=== PATIENT | male | born 1980 | race Caucasian/White ===

== ENCOUNTER 2016-08-16 10:25 | Emergency (ER) | payer OTHER ==
[~2016-08-16] VITALS: Ht 190.5 cm; Wt 89.2 kg
[2016-08-16 12:01] LABS: EOSINOPHIL (%) 1.3 % (0-5); EOSINOPHIL COUNT 0.1 K/uL (0-0.3); IMMATURE GRANULOCYTE (%) 0.2 % (0.0-0.7); INSTRUMENT ABS NEUTROPHIL CT 4.3 K/uL; LYMPHOCYTE COUNT 1.3 K/uL (1.0-2.8); MCH 29.4 PG (29.0-34.0); MCHC 32.9 G/DL (30.0-36.0); MCV 89.4 FL (86-99); MEAN PLAT.VOLUME 9.9 uM^3 (9.0-12.4); MONOCYTE (%) 5.7 % (3-12); MONOCYTE COUNT 0.4 K/uL (0-0.8); NEUTROPHIL (%) 70.7 % (45-76); NEUTROPHIL COUNT 4.3 K/uL (1.8-6.4); PLATELET COUNT 237 K/uL (156-360); RBC DIS.WIDTH-CV 12.4 % (11.8-14.6); RBC DIS.WIDTH-SD 41.1 % (39-53); WHITE BLOOD COUNT 6.1 K/uL (4.1-10.2)
[2016-08-16 12:13] LABS: CHLORIDE 108 mEq/L (99-109); POTASSIUM 4.4 mEq/L (3.7-5.4); SODIUM 141 mEq/L (136-147)
[2016-08-16 12:15] LABS: GLUCOSE 106 mg/dL (70-99)
[2016-08-16 12:16] LABS: ANION GAP 7 MEQ/L (2-14)
[2016-08-16 12:18] LABS: TROP-I INTERPRETATION NEGATIVE; TROPONIN-I 0.01 ng/mL (0.0-0.30)
[2016-08-16 12:19] LABS: GFR ESTIMATE (CALCULATED) > 59 mL/min/
[2016-08-16 12:20] LABS: UREA NITROGEN (BUN) 15 mg/dL (9-23)
[2016-08-16] MEDS ORDERED: INDOCIN50 MG PO (13:01)
[2016-08-16] MEDS ORDERED: PREDNISONE50 MG PO (13:01)
[2016-08-16 13:36] VITALS: BP 120/83
== END 2016-08-16 13:48 | disposition home or self-care (01) ==
LOC: EME 10:25
PROVIDERS: Emergency Medicine
DX: R07.9 Chest pain, unspecified (principal); Z82.49 Family history of ischemic heart disease and other diseases of the circulatory system; Z72.0 Tobacco use
CPT/HCPCS: 71010; 80048; 84484; 85025; 85379; 93005; 99281; 99285; J1885; J2930; J7040

== ENCOUNTER 2016-10-02 12:42 | Emergency (ER) | payer OTHER ==
[~2016-10-02] VITALS: Ht 190.5 cm; Wt 92.8 kg
[~2016-10-02 12:42] MED LIST: INDOCIN50 MG PO; PREDNISONE50 MG PO
[2016-10-02] MEDS ORDERED: SEROQUEL300 MG PO (14:00)
[2016-10-02] MEDS ORDERED: FOCALIN XR30 MG PO (14:00)
[2016-10-02] MEDS ORDERED: NEURONTIN800 MG PO (14:00)
[2016-10-02 14:47] VITALS: BP 123/98
== END 2016-10-02 14:48 | disposition home or self-care (01) ==
LOC: EME 12:42
DX: Z76.0 Encounter for issue of repeat prescription (principal); F41.9 Anxiety disorder, unspecified; F90.9 Attention-deficit hyperactivity disorder, unspecified type; F31.9 Bipolar disorder, unspecified; F17.200 Nicotine dependence, unspecified, uncomplicated; Z88.8 Allergy status to other drugs, medicaments and biological substances; F32.9 Major depressive disorder, single episode, unspecified
CPT/HCPCS: 99281; 99283

== ENCOUNTER 2017-02-13 08:24 | Emergency (ER) | payer OTHER ==
[~2017-02-13] VITALS: Ht 190.5 cm; Wt 86.6 kg
[~2017-02-13 08:24] MED LIST changes: +FOCALIN XR30 MG PO; +NEURONTIN800 MG PO; +SEROQUEL300 MG PO
[2017-02-13] MEDS ORDERED: MOTRIN600 MG PO (10:11)
[2017-02-13 10:39] VITALS: BP 130/90
== END 2017-02-13 10:40 | disposition home or self-care (01) ==
LOC: EME 08:24
DX: S93.401A Sprain of unspecified ligament of right ankle, initial encounter (principal); X58.XXXA Exposure to other specified factors, initial encounter; F17.200 Nicotine dependence, unspecified, uncomplicated
CPT/HCPCS: 73610; 99281; 99284

== ENCOUNTER 2017-04-14 09:20 | Emergency (ER) | payer OTHER ==
[~2017-04-14] VITALS: Ht 188 cm; Wt 90.8 kg
[~2017-04-14 09:20] MED LIST changes: +MOTRIN600 MG PO
[2017-04-14 09:40] VITALS: BP 115/72
[2017-04-14 10:34] LABS: HEMATOCRIT 37.6 % (38.0-50.0); HEMOGLOBIN 12.6 G/DL (12.5-16.6); MCH 30.1 PG (29.0-34.0); MCHC 33.5 G/DL (30.0-36.0); MCV 89.7 FL (86-99); PLATELET COUNT 210 K/uL (156-360); RBC DIS.WIDTH-CV 12.5 % (11.8-14.6); RBC DIS.WIDTH-SD 40.5 % (39-53); RED BLOOD COUNT 4.19 M/uL (4.00-5.50); WHITE BLOOD COUNT 11.2 K/uL (4.1-10.2)
[2017-04-14 10:45] LABS: CHLORIDE 106 mEq/L (99-109); POTASSIUM 4.2 mEq/L (3.7-5.4); SODIUM 139 mEq/L (136-147)
[2017-04-14 10:47] LABS: GLUCOSE 106 mg/dL (70-99)
[2017-04-14 10:48] LABS: TOTAL PROTEIN 7.6 g/dL (6.4-8.3)
[2017-04-14 10:49] LABS: TOTAL BILIRUBIN 0.3 mg/dL (0.0-1.0)
[2017-04-14 10:51] LABS: ALKALINE PHOSPHATASE 85 IU/L (3-129); CREATININE 0.7 mg/dL (0.6-1.3); GFR ESTIMATE (CALCULATED) > 59 mL/min/ (58.99-99999)
[2017-04-14 10:52] LABS: UREA NITROGEN (BUN) 16 mg/dL (9-23)
[2017-04-14 10:53] LABS: AST (GOT) 12 IU/L (2-34)
[2017-04-14 10:54] LABS: ALT (GPT) 17 IU/L (3-49)
[2017-04-14 11:27] LABS: APPEARANCE CLEAR ((CLEAR)); BILIRUBIN NEGATIVE; BLOOD NEGATIVE; COLOR YELLOW ((YELLOW)); GLUCOSE (STRIP) NEGATIVE; KETONES NEGATIVE; LEUKOCYTES NEGATIVE; NITRITE NEGATIVE; PROTEIN (STRIP) NEGATIVE; SPECIFIC GRAVITY 1.025 (1.000-1.030); UCUL ADDED? NO; UROBILINOGEN 0.2 MG/DL (0.2-1.0)
== END 2017-04-14 11:27 | disposition left against medical advice (07) ==
LOC: EME 09:20
DX: R10.9 Unspecified abdominal pain (principal); R11.10 Vomiting, unspecified; R19.7 Diarrhea, unspecified; Z53.21 Procedure and treatment not carried out due to patient leaving prior to being seen by health care provider
CPT/HCPCS: 80053; 81003; 85027